=== PATIENT | male | born 1965 | race Caucasian/White ===

== ENCOUNTER 2021-07-09 10:04 | Observation (INO) ==
[2021-07-09] MEDS ORDERED: Aspirin 81 MG TAB.CHEW PO ONE (10:06)
[2021-07-09 10:29] LABS: Basophils % 0.7 %; Eosinophils # 0.3 K/mcL (0.0-0.6); Eosinophils % 6.9 %; Hematocrit 36.6 % (37.5-50.1); Hemoglobin 12.3 g/dL (12.9-16.9); Immature Granulocytes % 0.2 % (0-4); Lymphocytes # 1.5 K/mcL (0.6-4.6); Lymphocytes % 33.9 %; Mean Corpuscular HGB Conc 33.6 g/dL (31.6-35.5); Mean Corpuscular Hemoglobin 31.5 pg (28.0-33.3); Mean Corpuscular Volume 93.8 fL (83.0-100.0); Monocytes # 0.6 K/mcL (0.0-1.3); Monocytes % 13.8 %; Neutrophils # 1.9 K/mcL (1.6-8.9); Platelet Count 177 K/mcL (140-400); Red Cell Distribution Width 14.6 % (11.5-14.5); Segmented Neutrophils % 44.5 %; White Blood Count 4.3 K/mcL (4.3-11.1)
[2021-07-09 10:37] LABS: INR 1.2; Prothrombin Time 13.8 Seconds (9.4-12.1)
[2021-07-09 10:51] LABS: BUN/Creatinine Ratio 29 (6-26); Blood Urea Nitrogen 31 mg/dL (6-20); Calcium 8.7 mg/dL (8.6-10.3); Carbon Dioxide 21 mEq/L (23-29); Chloride 101 mEq/L (98-107); Glucose 120 mg/dL (70-105); Osmolality,Calculated 280 (280-300); Potassium 3.5 mEq/L (3.5-5.1); Sodium 131 mEq/L (136-145); Troponin I < 0.03 ng/mL (< 0.04); eGFR For African Americans > 60 (> 60); eGFR For Non-African Americans > 60 (> 60)
[2021-07-09] MEDS ORDERED: *HR* FentaNYL (PF) 100 MCG/2 ML VIAL IVP ONE (12:06)
[2021-07-09 12:38] LABS: Influenza A PCR Negative (Negative); Influenza B PCR Negative (Negative); Resp. Syncytial Virus PCR Negative (Negative); SARS-CoV-2 by PCR (In House) Negative (Negative)
[2021-07-09] MEDS ORDERED: cefTRIAXone 1,000 MG in Water for inj. (sterile) 10 ML IVP ONE (12:50)
[2021-07-09] MEDS ORDERED: Azithromycin 500 MG in 0.9 % Sodium Chloride 250 ML IVPB ONE (12:50)
[2021-07-09] MEDS ORDERED: Naloxone 0.4 MG/ML INJ IVP PRN ×2 (13:18→13:19)
[2021-07-09] MEDS ORDERED: Melatonin 3 MG TABLET PO PRN (13:19)
[2021-07-09] MEDS ORDERED: Acetaminophen 325 MG TABLET PO PRN (13:19)
[2021-07-09] MEDS ORDERED: Ondansetron 4 MG/2 ML VIAL IVP PRN (13:19)
[2021-07-09] MEDS: 0.9 % Sodium Chloride 1,000 ML IVC SCH (14:42)
[2021-07-09] MEDS ORDERED: Nitroglycerin 0.4 MG TAB.SUBL SL PRN (16:51)
[2021-07-09] MEDS ORDERED: Perflutren Lipid Microsphere 1.3 ML in 0.9 % Sodium Chloride 8.7 ML IVP PRN (16:51)
[2021-07-09] MEDS ORDERED: *HR* Enoxaparin 40 MG/0.4 ML SYRINGE SQ ONE (16:53)
[2021-07-09] MEDS: *HR* HYDROcodone/Acet 5/325 mg TABLET PO PRN (17:12)
[2021-07-09] MEDS: Nicotine 21 MG PATCH.TD24 TD SCH (17:13)
[2021-07-09] MEDS: Famotidine 20 MG TABLET PO SCH (21:11)
[2021-07-10 03:38] LABS: Basophils % 0.5 %; Eosinophils # 0.4 K/mcL (0.0-0.6); Eosinophils % 9.1 %; Hematocrit 34.9 % (37.5-50.1); Hemoglobin 11.4 g/dL (12.9-16.9); Immature Granulocytes % 0.5 % (0-4); Lymphocytes # 1.8 K/mcL (0.6-4.6); Lymphocytes % 46.3 %; Mean Corpuscular HGB Conc 32.7 g/dL (31.6-35.5); Mean Corpuscular Hemoglobin 31.2 pg (28.0-33.3); Mean Corpuscular Volume 95.6 fL (83.0-100.0); Mean Platelet Volume 8.5 fL (9.4-12.4); Monocytes # 0.5 K/mcL (0.0-1.3); Monocytes % 12.9 %; Neutrophils # 1.2 K/mcL (1.6-8.9); Platelet Count 182 K/mcL (140-400); Red Blood Count 3.65 M/mcL (4.19-5.50); Red Cell Distribution Width 14.5 % (11.5-14.5); Segmented Neutrophils % 30.7 %
[2021-07-10 03:41] LABS: Estimated Average Glucose 123 mg/dl; Hemoglobin A1C 5.9 %
[2021-07-10 04:00] LABS: Chol/HDL Ratio 3.6 (0-4.9)
[2021-07-10 04:07] LABS: BUN/Creatinine Ratio 27 (6-26); Blood Urea Nitrogen 26 mg/dL (6-20); Calcium 7.9 mg/dL (8.6-10.3); Carbon Dioxide 22 mEq/L (23-29); Chloride 106 mEq/L (98-107); Glucose 113 mg/dL (70-105); Osmolality,Calculated 282 (280-300); Potassium 4.4 mEq/L (3.5-5.1); Sodium 133 mEq/L (136-145); eGFR For African Americans > 60 (> 60); eGFR For Non-African Americans > 60 (> 60)
[2021-07-10] MEDS: 0.9 % Sodium Chloride 1,000 ML IVC SCH (04:17)
[2021-07-10] MEDS ORDERED: cefTRIAXone 1,000 MG in Water for inj. (sterile) 10 ML IVP SCH (09:00)
[2021-07-10] MEDS ORDERED: Azithromycin 500 MG in 0.9 % Sodium Chloride 250 ML IVPB SCH (09:00)
[2021-07-10] MEDS: Nicotine 21 MG PATCH.TD24 TD SCH (09:59)
[2021-07-10] MEDS: *HR* HYDROcodone/Acet 5/325 mg TABLET PO PRN ×2 (10:09→19:51)
[2021-07-10] MEDS: Regadenoson 0.4 MG/5 ML SYRINGE IVP ONE ×2 (11:34→11:39)
[2021-07-10] MEDS: Famotidine 20 MG TABLET PO SCH (19:52)
[2021-07-11 05:19] LABS: Basophils % 1.2 %; Eosinophils # 0.5 K/mcL (0.0-0.6); Eosinophils % 14.5 %; Hematocrit 37.7 % (37.5-50.1); Hemoglobin 12.2 g/dL (12.9-16.9); Immature Granulocytes % 0.6 % (0-4); Lymphocytes # 1.8 K/mcL (0.6-4.6); Lymphocytes % 54.5 %; Mean Corpuscular HGB Conc 32.4 g/dL (31.6-35.5); Mean Corpuscular Hemoglobin 31.6 pg (28.0-33.3); Mean Corpuscular Volume 97.7 fL (83.0-100.0); Mean Platelet Volume 8.6 fL (9.4-12.4); Monocytes # 0.4 K/mcL (0.0-1.3); Neutrophils # 0.5 K/mcL (1.6-8.9); Platelet Count 194 K/mcL (140-400); Red Blood Count 3.86 M/mcL (4.19-5.50); Red Cell Distribution Width 14.5 % (11.5-14.5); Segmented Neutrophils % 16.2 %; White Blood Count 3.3 K/mcL (4.3-11.1)
[2021-07-11 05:22] LABS: BUN/Creatinine Ratio 19 (6-26); Blood Urea Nitrogen 18 mg/dL (6-20); Calcium 8.4 mg/dL (8.6-10.3); Carbon Dioxide 23 mEq/L (23-29); Chloride 106 mEq/L (98-107); Glucose 105 mg/dL (70-105); Osmolality,Calculated 284 (280-300); Potassium 4.5 mEq/L (3.5-5.1); Sodium 136 mEq/L (136-145); eGFR For African Americans > 60 (> 60); eGFR For Non-African Americans > 60 (> 60)
[2021-07-11 07:16] VITALS: BP 160/89; PULSE 67; TEMP 97.9; O2SAT 96
[2021-07-11] MEDS: Nicotine 21 MG PATCH.TD24 TD SCH (08:25)
[2021-07-11] MEDS: *HR* HYDROcodone/Acet 5/325 mg TABLET PO PRN (08:35)
[2021-07-11] MEDS ORDERED: lisinopriL 10 MG TABLET PO SCH (09:00)
[2021-07-11] MEDS ORDERED: Metoprolol XL (24 HR) Succ 25 MG TAB.ER.24H PO SCH (12:00)
== END 2021-07-11 13:53 | disposition home or self-care (01) ==
LOC: EMEROOARM 10:04 → 3BNU 10:04 → SUATTDRO 13:10 → 3BNU 13:59
PROVIDERS: ADMIT Hospitalist; ATTEND Internal Medicine